=== PATIENT | female | born 1995 | race Two or more races ===

== ENCOUNTER 2025-02-18 13:41 | Emergency (ER) | payer MEDICAID, SELFPAY ==
[2025-02-18 13:44] VITALS: BMI 25.8
[2025-02-18 14:06] VITALS: BP 136/88; PULSE 76; RESP 18; TEMP 36.7; O2SAT 97
--- NOTE | 2025-02-18 14:08 | XR_ITS ---
Examination: Abdomen sonogram, Limited Date and time of exam: February 18, 2025, 1426 hrs. Indications: Right-sided abdominal pain radiating to the back beginning one week ago. Technique: Real-time rodriguez scale transabdominal sonographic images of the upper abdomen obtained. Findings: Gallbladder sludge. Negative for cholelithiasis, negative for cholecystitis. Common bile duct 0.3 cm Pancreatic head 2.6 cm Liver 15.9 cm fatty infiltration no focal liver lesions. Normal hepatopedal portal venous flow Patent IVC Impression: Negative for cholelithiasis, negative for cholecystitis
--- NOTE | 2025-02-18 14:13 | EDNOTE_ITS ---
ED Abdominal Pain RME/HPI General Chief Complaint: Abdominal Pain Stated complaint: R) ABD PAIN RADIATING TO LOWER BACK, 03/28 Time seen by provider: 02/18/25 13:46 Arrival date/time: 02/18/25 13:41 This is a 29-year-old female that comes into the emergency room with complaints of right upper quadrant pain that radiates to her back that started about 5 days ago. Patient states that she was seen by her primary doctor at [facility] and they are working her up for possible gallstones. Patient already has an ultrasound ordered but states that she could not wait because her pain was very bad today. Patient describes her pain 9 out of 10. Patient denies fever, nausea, vomiting, diarrhea. Patient denies any urinary symptoms. Patient states that she just finished her menstrual cycle and does not think she is . Patient reports history of high blood pressure and hypothyroidism. Related Data Home Medications ?Medication ?Instructions ?Recorded ?Confirmed levothyroxine 100 mcg tablet 100 mcg PO QDAY 12/01/21 01/12/22 prenat.vits,franck,kxe-[id number]-brxmk 1 tab PO QDAY 12/01/21 01/12/22 Previous Rx's ?Medication ?Instructions ?Recorded prednisone 20 mg tablet 60 mg PO QDAY #15 tabs 01/11 ibuprofen 800 mg tablet 800 mg PO Q6H PRN pain #14 t abs 02/18/25 Allergies Allergy/AdvReac Type Severity Reaction Status Date / Time No Known Allergies Allergy Verified 02/18/25 13:47 Review of Systems Review of Systems Systems Reviewed: All systems reviewed, normal except as documented Past Medical History Past Medical History NEUROLOGIC: Positive Neurological Disorders GASTROINTESTINAL: Positive Gastrointestinal Disorders and Gastroesophageal Reflux Disease REPRODUCTIVE: Positive Previous Pregnancies (SAB X2) ENDOCRINE: Positive Endocrine Disorders and Hypothyroidism (2018) OTHER HISTORY: Positive Hospitalization (1998 HIP SX) and Chicken Pox ( A CHILD) Family History FAMILY HISTORY: Positive Family Cancer (MOM, BREAST CANCER) and Family Surgery (RIGHT BREAST REMOVED) Social History SMOKING STATUS: Never smoker SUBSTANCE USE: does not use ALCOHOL: Never Travel History EBOLA RISK: No ED Exam Narrative Physical exam: VITAL SIGNS: Reviewed. GENERAL APPEARANCE: Alert and interactive, follows commands, no acute distress, HEAD AND FACE: Non-traumatic. ENT: PERRL, conjuctiva pink and clear, eyelid no trauma, Mucous membrane moist. NECK: Supple, nontender, no nuchal rigidity. CHEST: No tenderness, no crepitus, no paradoxical movement, no retractions. LUNGS: Clear, well ventilated, symmetric, no rales, no wheezing, no rhonchi, no stridor, good breath sounds bilaterally. HEART: Regular rate, regular rhythm, no murmur, no gallops. ABDOMEN: Soft, nondistended, no guarding, nontender NEUROLOGICAL: Gross motor function intact sensory function intact, Appropriate for age. MUSCULOSKELETAL: low back nontender, full range of motion. EXTREMITIES: No redness no swelling no skin breakdown on bilateral foot and leg. Distal neurovascular status intact bilateral foot SKIN: Color pink, dry, no rash, no lacerations, no abrasions, no contusions. Course Quality Measures none Orders Category Date Time Status US abdomen limited Stat Exams 02/18/25 14:08 Completed CBC Stat Lab 02/18/25 14:43 Completed Comprehensive Metabolic Panel Stat Lab 02/18/25 14:43 Completed HCG Qualitative,Urine Stat Lab 02/18/25 14:29 Completed Lipase Stat Lab 02/18/25 14:43 Completed Urinalysis, C/S if Indicated Stat Lab 02/18/25 14:29 Completed Ketorolac Inj [Toradol Inj] Med 02/18/25 16:32 Discontinued 60 mg IM X1 ONE Metoclopramide Inj [Reglan Inj] Med 02/18/25 16:32 Discontinued 10 mg IM X1 ONE Vital Signs Vital signs: Vital Signs Temperature 98.1 F 02/18/25 14:06 Pulse Rate 76 02/18/25 14:06 Respiratory Rate 18 02/18/25 14:06 Blood Pressure 136/88 H 02/18/25 14:06 Pulse Oximetry (%) 97 02/18/25 14:06 Oxygen Delivery Method Room Air 02/18/25 14:06 Abdominal Pain MDM MDM Narrative MDM Narrative:: Labs reviewed CBC unremarkable BMP unremarkable lipase 28 LFTs unremarkable urine unremarkable and test is negative. Gallbladder ultrasound shows sludge in the gallbladder. I spoke to patient at length. Patient will need to follow-up with a primary provider in 1 to 2 days. Come back to the emergency room if symptoms change or worsen. Explained to p atient the bland food diet patient should follow-up. Patient verbalizes understanding and comfortable plan of care. gallbladder US: Findings: Gallbladder sludge. Negative for cholelithiasis, negative for cholecystitis. Common bile duct 0.3 cm Pancreatic head 2.6 cm Liver 15.9 cm fatty infiltration no focal liver lesions. Normal hepatopedal portal venous flow Patent IVC Impression: Negative for cholelithiasis, negative for cholecystitis Dragon dictation: Although this document has been carefully reviewed, there may still be some phonetic and other typographical errors. These errors are purely grammatical due to imperfections in the software program and should not be construed in any way to compromise the substance of the patient's medical care during this visit. Patient data External records reviewed:: [facility] previous records Clinical information provided by:: patient Social determinants that could affect healthcare access:: none Patient has the following chronic illnesses:: see hpi How is presenting disease/condition affected by chronic disease/condition?: no chronic disease Evaluation data The following diagnostics were reviewed and interpreted by me:: lab results and radiology exam(s) Lab and/or radiology exams considered but not ordered:: none Interpretation Summary: see note Medications / Prescriptions Medications or Prescriptions considered but not ordered:: none Medication administrations:: Medication Administration History Discontinued Medications Ketorolac Tromethamine (Ketorolac Inj 60 Mg/2 Ml Vial) 60 mg IM X1 ONE Stop: 02/18/25 16:33 Last Admin: 02/18/25 16:49 Dose: 60 mg Documented By: ELIZABETH Metoclopramide HCl (Metoclopramide Inj 5 Mg/Ml Vial 2 Ml) 10 mg IM X1 ONE; Protocol Stop: 02/18/25 16:33 Last Admin: 02/18/25 16:50 Dose: 10 mg Documented By: MM see [facility] Consultations Consultation(s) initiated? (list below): No Diagnosis Differential diagnosis abdominal pain: abdominal pain, acute appendicitis, calcu ayana of kidney and other (cholecystitis ) Most likely diagnosis given after review of the tests above:: gallbladder sludge Admission Indicated Admission indicated?: not indicated Admission Request Was there a request for admission?: No Disposition Plan Disposition Plan: Discharge Discharge Attestation Discharge Attestation: The patient and all family members were given an opportunity to ask questions and understood the discharge instructions. Discharge instructions specifically effects, indications for sooner follow up or return to the emergency department, and the expected course of current diagnosis. Patient condition: Stable Discharge Plan Plan Patient Disposition: HOME (Self Care) Patient condition on transfer: Stable Prescriptions/Referrals Prescriptions/Med Rec: New ibuprofen 800 mg tablet 800 mg PO Q6H PRN (Reason: pain) Qty: 14 0RF No Action Vitamin Tablet 1 tab PO QDAY levothyroxine 100 mcg Tablet 100 mcg PO QDAY prednisone 20 mg tablet 60 mg PO QDAY Qty: 15 0RF Taper: Prednisone Taper 20 mg DAILY for 2 Days and 0 Hour Referrals: No Primary/Family,Physician [Primary Care Provider] - In 1 week Problem List Clinical Impression: Gallbladder sludge Patient/Caregiver Discharge Instructions Discharge Activity: activity as tolerated Education Materials: Abdominal Pain Additional Instructions: Follow up with primary provider in 1-2 days. Come back to ED if symptoms change or worsen Print Language: Maori Stand Alone Forms: Dayanna Award Info., Patient Portal Info Letter PA/CHEMICAL PRODUCTION TECHNICIAN Supervising Physician PA/CHEMICAL PRODUCTION TECHNICIAN Supervising Physician: ryann
[2025-02-18 14:52] LABS: Basophils # (Auto) 0.0 Thou/mm3 (0.0-0.2); Basophils % (Auto) 0 % (0-2.5); Eosinophils # (Auto) 0.2 Thou/mm3 (0.0-0.5); Eosinophils % (Auto) 4 % (0-10); Hematocrit 39.2 % (36.0-46.0); Hemoglobin 13.3 g/dL (12.0-16.0); Immature Granulocytes Auto 0.00 Thou/mm3 (0.00-0.00); Lymphocytes # (Auto) 2.0 Thou/mm3 (1.0-4.8); Lymphocytes % (Auto) 40 % (10-50); Mean Corpuscular HGB Conc 33.9 g/dl (31.0-37.0); Mean Corpuscular Hemoglobin 30.4 pg (25.0-35.0); Mean Corpuscular Volume 90 fL (80-100); Monocytes # (Auto) 0.4 Thou/mm3 (0.0-0.8); Monocytes % (Auto) 7 % (0-12); Neutrophils # (Auto) 2.4 Thou/mm3 (1.8-7.7); Neutrophils % (Auto) 48 % (37-80); Nucleated Red Blood Cell # 0.00 Thou/mm3 (0.00-0.00); Nucleated Red Blood Cell % 0 /100 WBC (0); Platelet Count 235 Thou/mm3 (140-440); RDW Standard Deviation 43.0 fL (36.4-46.3); Red Blood Count 4.38 Miln/mm3 (4.00-5.20); White Blood Count 5.0 Thou/mm3 (3.6-11.0)
[2025-02-18 15:03] LABS: Collection Type, Urine Voided
[2025-02-18 15:19] LABS: Alanine Aminotransferase 13 U/L (10-49); Albumin, Serum 4.6 gm/dL (3.5-5.0); Albumin/Globulin Ratio 1.6 (1.2-2.2); Alkaline Phosphatase 77 U/L (46-116); Anion Gap 8 (7-16); Aspartate Amino Transferase 16 U/L (0-34); BUN/Creatinine Ratio 13 Ratio (12-20); Bilirubin,Total 0.5 mg/dL (0.3-1.2); Blood Urea Nitrogen 9 mg/dL (9-23); Calcium 9.4 mg/dL (8.3-10.6); Calcium (Corrected) 9.4 mg/dL (8.5-10.1); Carbon Dioxide 28.0 mMol/L (20.0-31.0); Chloride 103 mMol/L (98-107); Creatinine (Component) 0.7 mg/dL (0.6-1.3); Estimated Creatinine Clearance 109.4 mL/min (>60); Globulin 2.9 gm/dL (2.3-3.5); Glucose 91 mg/dL (74-106); Lipase 28 U/L (12-53); Osmolality,Calculated 276 (275-295); Potassium 4.0 mMol/L (3.4-5.1); Sodium 139 mMol/L (136-145); Total Protein 7.5 gm/dL (5.7-8.2); eGFR > 60 See Note
[2025-02-18 15:19] LABS: Bilirubin,Urine Negative (Negative); Blood,Urine Negative (Negative); Clarity,Urine Clear (Clear/Hazy); Color,Urine Lt-Yellow (Lt Yel-Yel); Culture Indicated,Urine Not Indicated; Glucose, Urine Negative (Negative); Ketones,Urine Negative (Negative); Leukocyte Esterase,Urine Negative (Negative); Nitrite,Urine Negative (Negative); PH,Urine 7.0 (5.0-7.0); Protein,Urine Negative (Neg - Trace); RBC,Urine 3 /hpf (0-3); Specific Gravity,Urine 1.021 (1.001-1.035); Squamous Epithelial Cell,Urine 2 /hpf (0-5); Urobilinogen,Urine Negative mg/dL (0.0-1.0); WBC,Urine 1 /hpf (0-5)
[2025-02-18 15:31] LABS: HCG Qualitative,Urine Negative
[2025-02-18 16:09] VITALS: BP 148/91; PULSE 71; RESP 18; TEMP 36.9; O2SAT 100
[2025-02-18] MEDS: KETOROLAC INJ 60 MG/2 ML VIAL IM (16:49)
[2025-02-18] MEDS: METOCLOPRAMIDE INJ 5 MG/ML VIAL 2 ML 10 MG IM (16:50)
[2025-02-18 17:08] VITALS: BP 148/91; PULSE 63; RESP 18; TEMP 37.1; O2SAT 99
== END 2025-02-18 17:10 | disposition home or self-care (01) ==
PROVIDERS: Nurse Practitioner Family; Emergency Provider Family Medicine
DX: K82.8 Other specified diseases of gallbladder (principal)
CPT/HCPCS: 36415; 76705; 80053; 81001; 81025; 83690; 85025; 96372; 99283; J1885; J2765